=== PATIENT | male | born 1985 | race Caucasian/White ===

== ENCOUNTER → 2021-07-19 | Outpatient (CLI) | payer OTHER ==
--- NOTE | 2021-07-19 09:11 | KCIC ---
EXAMINATION: MRI LEFT SHOULDER WITHOUT IV CONTRAST CLINICAL HISTORY: Left shoulder pain and limited range of motion. Symptoms not improving with 6 month s physical therapy. Noticeable atrophy to muscle in scapular region.. TECHNIQUE: Multiplanar multisequential images obtained through the shoulder without intravenous contr ast. COMPARISON: Left shoulder radiographs 12/23/2020 FINDINGS: TENDONS: - Supraspinatus: Within normal limits. - Infraspinatus: Within normal limits. - Subscapularis: Within normal limits. - Teres Minor: Within normal limits. - Biceps Tendon: Long head biceps tendon intact and appropriately located. MUSCLES: Diffuse mild to moderate edema in the infraspinatus muscle with increased fluid signal near the myotendinous junction and several adjacent small foci of decreased T1 and T2 signal in the muscle belly suggestive of interstitial tearing with possible blood products and/or calcification. Diffuse mild edema in the supraspinatus muscle. Minimal fatty replacement in the infraspinatus and supraspina tus muscles without significant atrophy. Muscle bulk and signal intensity otherwise maintained. LABRUM: Small posterior inferior labral tear extending from 6:00-7:00 position. GLENOHUMERAL JOINT: - Joint Fluid: No joint effusion or synovitis. - Cartilage: Small full-thickness chondral fissure in the posterior superior glenoid. ACROMIOCLAVICULAR JOINT: Within normal limits. BONES/MARROW: No evidence of acute fracture or suspicious marrow replacing process. OTHER: Mild fluid in the subacromial/subdeltoid bursa. IMPRESSION: Moderate infraspinatus muscle strain with interstitial tearing suggested near the myotendinous juncti on and mild supraspinatus muscle strain. Small posterior inferior glenoid labrum tear. No full-thickness rotator cuff tear. Electronically signed by: Bob Gustafson DO (07/19/2021 9:08 AM) [facility]
== END ==
LOC: KCIC MRI 07:50
PROVIDERS: ATTEND Family Medicine
DX: S46.812A Strain of other muscles, fascia and tendons at shoulder and upper arm level, left arm, initial encounter (principal); S43.432A Superior glenoid labrum lesion of left shoulder, initial encounter; R60.0 Localized edema; M75.52 Bursitis of left shoulder; X58.XXXA Exposure to other specified factors, initial encounter; Y93.89 Activity, other specified; Y92.89 Other specified places as the place of occurrence of the external cause; Y99.8 Other external cause status
CPT/HCPCS: 73221